=== PATIENT | female | born 2000 | race Two or more races ===

== ENCOUNTER 2019-02-24 18:51 | Emergency (ER) | payer OTHER ==
[~2019-02-24] VITALS: Ht 160 cm; Wt 81.6 kg
[2019-02-24] MEDS ORDERED: NKM (18:59)
[2019-02-24 19:10] VITALS: BP 109/71
--- NOTE | 2019-02-24 19:58 | Emergency Room Report ---
History of Present Illness General Chief Complaint: General Complaint Source: Patient Present Illness HPI 18-year-old female presents the emergency department complaining of multiple panic attacks x1 week. Patient reports she has had 2 prior ED visits where she had urine, ekg and blood work performed. Patient feels as though she has not had a complete complete or solid diagnosis. She states one doctor concluded that her Implanon implant is causing her symptoms despite pt. having been on this medication multiple times without side effects in the past, and no new placement of implant. Patient states that the last doctor at [facility] gave her prescription for Zoloft and told her that [facility] does not really provide care for patients who are not in their network. And was instructed to come to [place]. Patient states she is not taking the Zoloft because she "researched the medication and found that there were many side effects and that this medication is primarily for depression. Patient denies history of anxiety or panic attacks in the past. Patient denies any familial psychiatric history she denies illicit drug use she denies she reports she had work-up for UTI or as well. Patient denies significant changes in weight, night sweats or history of thyroid disorder. Patient reports she has had intermittent /sporadic episodes of feeling heaviness in her chest area and difficulty breathing she states she begins breathing really fast and is unable to slow it down and feels as though she is trapped/suffocating. Patient reports exacerbation upon when family members attempt to put their arms around her or console her. Patient states that she feels as though she needs to go outside to get more oxygen. Patient denies chest pain she reports she feels as her heart is racing at times. Patient also reports feeling underlying tremor and during attacks she feels very shaky and shakiness in the legs. Patient also reports nausea she denies vomiting she denies fevers or chills. Patient denies recent stress however she states she did just lose a close friend last week and describes that he was murdered out in the streets of their neighborhood at nighttime. Patient also states she has been having difficulty sleeping some nights and feels as though her panic attacks occur more frequently at night. Patient states she has had some very mild relief with attempts to distract herself on occasion however she states that her symptoms are very severe and she is unable to obtain full relief during episodes of attacks. She denies SI/HI , hx. of depression, previous psychiatric hospitalizations, hx of heart problems , or asthma/smoking. Denies resent URI's or illnesses. Denies recent travel, hemoptysis or calf pain. No other aggravating or relieving factors. Allergies: Coded Allergies: No Known Allergies (Unverified , 02/24/19) Patient History Past Medical History: see triage record Past Surgical History: none Pertinent Family History: none Now: No Immunizations: UTD Reviewed Nursing Documentation: PMH: Agreed; PSxH: Agreed Nursing Documentation-PMH Past Medical History: No Stated History Review of Systems All Other Systems: negative except mentioned in HPI Physical Exam Vital Signs Date Time Temp Pulse Resp B/P (MAP) Pulse Ox O2 Delivery O2 Flow Rate FiO2 02/24/19 18:57 98.8 91 19 109/71 (84) 95 Room Air Sp02 EP Interpretation: reviewed, normal General Appearance: no apparent distress, alert, GCS 15, non-toxic Head: normocephalic, atraumatic Eyes: bilateral eye normal inspection, bilateral eye PERRL ENT: hearing grossly normal, normal voice Neck: full range of motion Respiratory: lungs clear, normal breath sounds, no wheezing, speaking full sentences Cardiovascular #1: regular rate, rhythm, no edema Gastrointestinal: non tender, soft Musculoskeletal: gait/station normal, normal range of motion, non-tender Neurologic: alert, oriented x3, responsive, motor strength/tone normal, sensory intact, speech normal, grossly normal Psychiatric: judgement/insight normal, no suicidal/homicidal ideation, anxious - Pt. demonstrates/ verbalizes having some agoraphobia Skin: no rash Lymphatic: no adenopathy Medical Decision Making PA Attestation Dr. Main Is my supervising Physician whom patient management has been discussed with. Diagnostic Impression: Primary Impression: Anxiety as acute reaction to exceptional stress ER Course Pt. presents to the ED c/o multiple panic attacks x 1 week. two ED visits with no specific dx, recent loss of a close friend who was murdered in the street of their neighborhood. Ddx considered but are not limited to anxiety, CO, PE, asthma, thyroid storm, hyperthyroid, EPS Vital signs: are WNL, pt. is afebrile H&PE are most consistent with panic attacks secondary to exceptionally stressful event. ORDERS: none required at this time, the diagnosis is clinical ED INTERVENTIONS: -0.5mg Ativan po This patient was given reassurance, discussed with patient that the medication that she was started on is a well-known treatment for the prevention of panic attacks however does take several weeks at full dosage to become effective. Discussed with patient different techniques such as the 5 senses technique to attempt to try during panic attacks. Also discussed with patient that she will be supplied with a small quantity of medications that are meant for emergent relief of her symptoms if the provided techniques are not working. Discussed with patient that she will be given prescription for Xanax which is a highly abusable and addictive medication and that it is not meant to be used regularly only used when she is unable to control a panic attack after she is attempted several tries. Also discussed with patient that she will be given some resources such as [facility] urgent care. Encouraged patient to seek counseling/therapy. Discussed with patient to avoid Google searching medications as a prescriber would not intentionally prescribe her something that could cause her more harm than benefit. Also discussed with this patient strict ED return precautions for worsening or new symptoms. Pt. verbalized her understanding and agreement with proposed treatment plan. Pt. had opportunity to ask questions and receive answers to those questions. -I do not identify an emergent condition at this time. With current presentation , pt. is stable for close outpatient follow up and conservative treatment. D/ w pt. to return promptly to ED with worsening or new symptoms.- Pt. verbalizes' understanding and agreement with proposed treatment plan.proposed treatment plan. DISCHARGE: At this time pt. is stable for d/c to home. Will provide printed patient care instructions, and any necessary prescriptions. Care plan and follow up instructions have been discussed with the patient prior to discharge. Last Vital Signs Date Time Temp Pulse Resp B/P (MAP) Pulse Ox O2 Delivery O2 Flow Rate FiO2 02/24/19 18:57 98.8 91 19 109/71 (84) 95 Room Air Disposition: HOME, SELF-CARE Condition: Stable Scripts Alprazolam* (XANAX*) 0.5 Mg Tablet 0.5 MG ORAL Q8HR PRN for Panic attack, #15 TAB 0 Refills Prov: Joanne Brown 02/24/19 Patient Instructions: Panic Attacks Additional Instructions: Take medications as directed. Follow up with a Primary Care Provider in 3-5 days, even if your symptoms have resolved. Return sooner to ED if new symptoms occur, or current symptoms become worse. Do not drink alcohol, drive, or operate heavy machinery while taking xanax as this may cause drowsiness. - Please note that this Emergency Department Report was dictated using [employer] technology software, occasionally this can lead to erroneous entry secondary to interpretation by the dictation equipment. Joanne Brown Feb 24, 2019 19:58
[2019-02-24] MEDS ORDERED: XANAX0.5 MG ORAL (20:00)
[2019-02-24 20:15] VITALS: BP 109/71
--- NOTE | 2019-02-24 20:15 | NUR ---
ER DISCHARGE NOTE: Patient is cleared to be discharged per ERMD, pt is aox4, on room air, with stable vital signs. pt was given dc and prescription instructions, pt was able to verbalize understanding, pt id band REMOVED . pt is able to ambulate with steady gait. pt took all belongings.
== END 2019-02-24 20:15 | disposition home or self-care (01) ==
LOC: EMR 19:05
DX: F43.0 Acute stress reaction (principal)
CPT/HCPCS: 99282